=== PATIENT | female | born 1985 ===

== ENCOUNTER 2019-07-10 19:40 | Inpatient (IN) | payer BC, OTHER ==
[2019-07-10] MEDS ORDERED: NS w/ Oxytocin 10 units 500 ML IV SCH (19:50)
[2019-07-10] MEDS ORDERED: Acetaminophen 500 MG TAB PO PRN (19:50)
[2019-07-10] MEDS ORDERED: HYDROcodone/Acetaminophen 5/325 mg Tablet PO PRN ×2 (19:50)
[2019-07-10] MEDS ORDERED: Ibuprofen 800 MG TAB PO PRN (19:50)
[2019-07-10] MEDS ORDERED: Diphenoxylate HCl/Atropine Tablet PO PRN ×2 (19:50)
[2019-07-10] MEDS ORDERED: Promethazine HCl 25 MG/ML VIAL IM PRN (19:50)
[2019-07-10] MEDS ORDERED: NS / Oxytocin 40 units/1000ml 1,000 ML IV PRN (19:50)
[2019-07-10] MEDS ORDERED: Butorphanol Tartrate 1 MG/ML VIAL SLOW IVP PRN (19:50)
[2019-07-10] MEDS ORDERED: Docusate 100 MG CAP PO PRN (19:50)
[2019-07-10] MEDS ORDERED: Lidocaine 1% (PF) 30 ML VIAL SC PRN (19:50)
[2019-07-10] MEDS ORDERED: Misoprostol 200 MCG TAB PR PRN (19:50)
[2019-07-10] MEDS ORDERED: hydrALAZINE 20 MG/ML VIAL SLOW IVP PRN (19:50)
[2019-07-10] MEDS ORDERED: Zolpidem Tartrate 5 MG TAB PO PRN (19:50)
[2019-07-10 20:33] VITALS: BMI 36.1
[2019-07-10] MEDS: Lactated Ringer's 1,000 ML IV SCH (20:50)
[2019-07-10 21:02] LABS: Hemoglobin 11.4 g/dL (12.0-16.0); Mean Corpuscular HGB CONC 34.6 g/dL (32.0-36.0); Mean Corpuscular Hemoglobin 31.7 pg (27.0-31.0); Mean Corpuscular Volume 91.6 fL (78.0-98.0); Mean Platelet Volume 9.8 fL (7.4-10.4); Platelet Count 229 thou/uL (130-400); RBC Distribution Width 13.1 % (11.5-14.5)
[2019-07-10] MEDS: Misoprostol 100 MCG TAB VAG SCH (21:07)
[2019-07-10 21:42] LABS: Syphilis Antibody Nonreactive (Nonreactive); Syphilis Antibody Index 0.03 S/CO (<1.00 Non-Reactive)
[2019-07-10 23:05] LABS: HBSAg Index 0.18 S/CO (0-0.99); Hep B Surf Ag Non-Reactive S/CO (NonReactive)
[2019-07-11] MEDS: Misoprostol 100 MCG TAB VAG SCH ×5 (00:03→23:43)
[2019-07-11] MEDS: Lactated Ringer's 1,000 ML IV SCH ×3 (04:41→11:42)
[2019-07-11] MEDS: Ondansetron PF 4 MG/2 ML Vial IVP PRN ×2 (06:25→16:22)
[2019-07-11] MEDS ORDERED: Fentanyl 4 mcg/Bup 0.1% Cadd 100 ML ONE ×2 (06:44→13:01)
[2019-07-11] MEDS ORDERED: Acetaminophen 325 MG TAB PO PRN (07:22)
[2019-07-11] MEDS ORDERED: Naloxone HCl 0.4 mg/ml Vial IVP PRN ×2 (07:22)
[2019-07-11] MEDS ORDERED: Promethazine HCl 25 MG/ML VIAL IM PRN (07:22)
[2019-07-11] MEDS ORDERED: EPHEDRINE 25 MG/5 ML SYRINGE SLOW IVP PRN (07:22)
[2019-07-11] MEDS ORDERED: diphenhydrAMINE 50 MG/ML VIAL IVP PRN (07:22)
[2019-07-11] MEDS ORDERED: Ondansetron PF 4 MG/2 ML Vial IVP PRN ×2 (07:22→18:44)
[2019-07-11] MEDS ORDERED: Lactated Ringer's 500 ML IV PRN (07:22)
[2019-07-11] MEDS ORDERED: Fentanyl 4 mcg/Bupivacaine 0.1% Cassette 100 ML EPIDURAL SCH (07:30)
[2019-07-11] MEDS ORDERED: Communication Order-Pharmacy FS SCH (07:30)
[2019-07-11] MEDS: NS w/ Oxytocin 10 units 500 ML IV SCH ×2 (10:44→22:47)
[2019-07-11] MEDS ORDERED: NS / Oxytocin 40 units/1000ml 1,000 ML ONE (12:50)
[2019-07-11] MEDS ORDERED: Lidocaine 1% (PF) 30 ML VIAL ONE (12:50)
[2019-07-11] MEDS ORDERED: Zolpidem Tartrate 5 MG TAB PO PRN (18:44)
[2019-07-11] MEDS ORDERED: Preparation H Ointment 28 GM TUBE PR PRN (18:44)
[2019-07-11] MEDS ORDERED: Lanolin Ointment 7 GM TUBE TOP PRN (18:44)
[2019-07-11] MEDS ORDERED: diphenhydrAMINE 25 MG CAP PO PRN (18:44)
[2019-07-11] MEDS ORDERED: Bisacodyl 10 MG SUPP PR PRN (18:44)
[2019-07-11] MEDS ORDERED: hydrALAZINE 20 MG/ML VIAL SLOW IVP PRN (18:44)
[2019-07-11] MEDS ORDERED: Misoprostol 200 MCG TAB VAG PRN (18:44)
[2019-07-11] MEDS ORDERED: Milk Of Magnesia 30 ML UDCUP PO PRN (18:44)
[2019-07-11] MEDS ORDERED: Acetaminophen/Codeine 30-300mg Tablet PO PRN ×2 (18:44)
[2019-07-11] MEDS ORDERED: Benzocaine-Menthol 82.5 ML CAN TOP PRN (18:44)
[2019-07-11] MEDS ORDERED: Adacel (T-DAP) 0.5 ML SYRINGE IM ONE (18:44)
[2019-07-11] MEDS ORDERED: NS / Oxytocin 40 units/1000ml 1,000 ML IV SCH (18:45)
[2019-07-11] MEDS: Ibuprofen 800 MG TAB PO SCH (22:29)
[2019-07-11] MEDS: Docusate Calcium (SURFAK) 240 MG CAP PO SCH (22:29)
[2019-07-12] MEDS: Ibuprofen 800 MG TAB PO SCH ×3 (06:01→21:49)
[2019-07-12 06:32] LABS: Hemoglobin 9.7 g/dL (12.0-16.0); Mean Corpuscular HGB CONC 35.7 g/dL (32.0-36.0); Mean Corpuscular Hemoglobin 33.3 pg (27.0-31.0); Mean Corpuscular Volume 93.3 fL (78.0-98.0); Mean Platelet Volume 9.1 fL (7.4-10.4); Platelet Count 157 thou/uL (130-400); RBC Distribution Width 13.1 % (11.5-14.5); Red Blood Cell (RBC) Count 2.92 mill/uL (4.20-5.40); White Blood Cell (WBC) Count 11.9 thou/uL (4.8-10.8)
[2019-07-12] MEDS ORDERED: EPHEDRINE 25 MG/5 ML SYRINGE ONE (08:34)
[2019-07-12] MEDS: Docusate Calcium (SURFAK) 240 MG CAP PO SCH ×2 (12:19→21:48)
[2019-07-12] MEDS: Prenatal Vitamin 1 TAB PO SCH (12:20)
[2019-07-12] MEDS: Ferrous Sulfate 325 MG TAB PO SCH ×2 (12:20→18:46)
[2019-07-13] MEDS: Ibuprofen 800 MG TAB PO SCH (06:03)
[2019-07-13 08:09] VITALS: BP 136/77; TEMP 98.8
[2019-07-13] MEDS: Docusate Calcium (SURFAK) 240 MG CAP PO SCH (08:42)
[2019-07-13] MEDS: Ferrous Sulfate 325 MG TAB PO SCH (08:42)
[2019-07-13] MEDS: Prenatal Vitamin 1 TAB PO SCH (08:42)
== END 2019-07-13 12:10 | disposition home or self-care (01) | DRG 806 ==
LOC: L&D 19:40 → 3SE 07-11 21:24 → EDSTATUS 07-16 15:38
PROVIDERS: ADMIT Obstetrics & Gynecology; ATTEND Obstetrics & Gynecology
PROC: 10E0XZZ Delivery of Products of Conception, External Approach (ICD-10-PCS; principal; 2019-07-11)
PROC: 0KQM0ZZ Repair Perineum Muscle, Open Approach (ICD-10-PCS; 2019-07-11)
PROC: 10907ZC Drainage of Amniotic Fluid, Therapeutic from Products of Conception, Via Natural or Artificial Opening (ICD-10-PCS; 2019-07-11)
PROC: 3E033VJ Introduction of Other Hormone into Peripheral Vein, Percutaneous Approach (ICD-10-PCS; 2019-07-11)
DX: O99.02 Anemia complicating childbirth (principal); D62 Acute posthemorrhagic anemia; Z37.0 Single live birth; Z3A.39 39 weeks gestation of pregnancy; O70.1 Second degree perineal laceration during delivery
CPT/HCPCS: 36415; 51702; 85027; 86780; 86850; 86900; 86901; 87340; J0595; J2001; J2405; J2590